=== PATIENT | female | born 1955 | race African-American/Black ===

== ENCOUNTER 2017-06-22 19:26 | Emergency (ER) | payer OTHER ==
[~2017-06-22] VITALS: Ht 154.9 cm; Wt 72.6 kg
[~2017-06-22 19:26] MED LIST: ACETAMINOPHEN/O1 TA3 PO; ADVAIR; ALBUTEROL; AMBIENPAK10 M1; AMBIENPAK10 MG PO; ATIVAN2 M1 PO; BENADRYL; BENADRYL ALLERG25 M1; BENADRYL25 M1 PO; CEPACOL SORE TH1 LO4 MM; CLINDAMYCIN HC300 MG PO; COU7.5 PO; FENTANYL TR50 MCG/H1 TOP; INSULIN REGULAR; LAC PO; LANTI SQ; LEVAQUIN750 MG PO; NEXIUM I.V.40 MG IV; NOR10T PO; PLA200; PLA200 PO; PRILOSEC; ROBDML PO; ZOF4 PO; ZOFRAN
[2017-06-22 20:17] VITALS: Ht 154.9 cm; Wt 72.6 kg
[2017-06-22 23:20] VITALS: BP 110/60
== END 2017-06-22 23:20 | disposition home or self-care (01) ==
LOC: ED 19:26
DX: M17.11 Unilateral primary osteoarthritis, right knee (principal); M32.9 Systemic lupus erythematosus, unspecified; I10 Essential (primary) hypertension; Z88.1 Allergy status to other antibiotic agents; Z88.6 Allergy status to analgesic agent; Z88.8 Allergy status to other drugs, medicaments and biological substances
CPT/HCPCS: J1200; J2270; Q0092; Q0162

== ENCOUNTER 2017-09-09 13:31 | Emergency (ER) | payer OTHER ==
[~2017-09-09] VITALS: Ht 167.6 cm; Wt 59.0 kg
[2017-09-09 13:41] VITALS: BP 135/84; Ht 167.6 cm; Wt 59.0 kg
== END 2017-09-09 16:01 | disposition left against medical advice (07) ==
LOC: ED 13:31
DX: Z53.21 Procedure and treatment not carried out due to patient leaving prior to being seen by health care provider (principal)